=== PATIENT | male | born 1980 | race Caucasian/White ===

== ENCOUNTER 2020-03-21 04:34 | Emergency (ER) | payer OTHER ==
[~2020-03-21] VITALS: Ht 170 cm; Wt 86.1 kg
--- NOTE | 2020-03-21 05:20 | ED Respiratory ---
General Chief Complaint: Cough/Cold/Flu Symptoms Stated Complaint: COUGH,CONGESTION Source: patient (SOMEWHAT VAGUE HISTORIAN) History of Present Illness Date Seen by Provider: Mar 21, 2020 Time Seen by Provider: 04:51 Initial Comments PT ARRIVES VIA POV PT C/O PRODUCTIVE COUGH WITH GREEN SPUTUM, AND CHEST CONGESTION FOR AT LEAST A WEEK--PT IS UNABLE TO STATE WHEN HE BEGAN TO HAVE SYMPTOMS NO FEVER NO SHORTNESS OF BREATH NO LOSS OF TASTE OR SMELL C/O FATIGUE C/O BODY ACHES NO HEADACHE NO GI SYMPTOMS PT IS FROM [facility], AND TRAVELS AROUND FOR WORK--CURRENTLY HE IS LIVING HERE IN [place], AND [facility]ING [facility]. STATES HE WAS POTENTIALLY EXPOSED TO COVID-19 LAST WEEK, WHEN HE HAD TO TAKE A WORK TRUCK TO A TIRE SHOP IN [place], [place] AND THE SON OF THE PERSON WHO WORKED ON THE TRUCK HAD COVID. PT STATES HE WAS TESTED LAST WEEK AT [facility], AND WAS NEGATIVE. PT STATES HIS SYMPTOMS ARE GETTING WORSE HAS NOT TAKEN ANYTHING FOR SYMPTOMS HAS MILD ALLERGIES, BUT NO RESPIRATORY PROBLEMS OR ANY CHRONIC ILLNESSES PT HAS HISTORY OF SMOKING MARIJUANA, BUT NOT REGULAR CIGARETTES PT HAS HISTORY OF HEAVY ETOH USE, BUT NONE SINCE DECEMBER. PCP: [facility] Allergies and Home Medications Allergies Coded Allergies: No Known Drug Allergies (Unverified , 03/21/20) Patient Home Medication List Home Medication List Reviewed: Yes Review of Systems Review of Systems Constitutional: see HPI; No chills, No diaphoresis, No dizziness, No fever; malaise EENTM: no symptoms reported; No nose congestion, No throat pain Respiratory: see HPI, cough; No short of breath Cardiovascular: no symptoms reported; No chest pain Gastrointestinal: no symptoms reported; No abdominal pain, No diarrhea, No loss of appetite, No nausea, No vomiting Genitourinary: no symptoms reported Musculoskeletal: see HPI (BODY ACHES) Skin: no symptoms reported Psychiatric/Neurological: No Symptoms Reported; Denies Headache Hematologic/Lymphatic: No Symptoms Reported Immunological/Allergic: see HPI Past Rjebsfc-Rkahpu-Jtxdlf Hx Past Med/Social Hx: Reviewed and Corrections made Patient Social History Alcohol Use: Regular Use (HISTORY OF DAILY HEAVY USE-12 PACK/DAY. DENIES USE SINCE 12/2019) Recreational Drug Use: Yes (THC IN PAST) Drug of Choice: THC IN PAST Smoking Status: Never a Smoker Recent Foreign Travel: No Contact w/Someone Who Travel: No Seasonal Allergies Seasonal Allergies: Yes Past Medical History Surgeries: No Respiratory: No Cardiac: No Neurological: No Genitourinary: No Gastrointestinal: No Musculoskeletal: No Endocrine: No HEENT: No Cancer: No Psychosocial: No Integumentary: No Blood Disorders: No Physical Exam Vital Signs - First Documented 03/21/20 04:50 Temp 36.4 Pulse 62 Resp 18 B/P (MAP) 119/73 (88) Pulse Ox 95 O2 Delivery Room Air Capillary Refill : Height: '" Weight: lbs. oz. kg; BMI Method: General Appearance: WD/WN, no apparent distress, other (DOES NOT APPEAR ILL, OR TO BE IN ANY DISCOMFORT OR DISTRESS. NO COUGH NOTED AT ANY TIME) HEENT: PERRL/EOMI, normal ENT inspection, TMs normal, pharynx normal Neck: non-tender, full range of motion, supple, normal inspection Respiratory: no respiratory distress, no accessory muscle use, rhonchi (DIFFUSE RHONCHI IN BILATERAL MID AND LOWER LUNGS); No wheezing Cardiovascular: regular rate, rhythm, no murmur Gastrointestinal: non tender, soft Extremities: normal inspection, normal capillary refill Neurologic/Psychiatric: equipment monitor phototypesetting II-XII nml as tested, no motor/sensory deficits, alert, normal mood/affect, oriented x 3 Skin: normal color, warm/dry Progress/Results/Core Measures Suspected Sepsis SIRS Temperature: Pulse: Respiratory Rate: Blood Pressure / Mean: Results/Orders Lab Results Laboratory Tests Test 03/21/20 04:55 Range/Units Coronavirus 2018 (LIZ) Negative Negative Micro Results Microbiology 03/21/20 Influenza Types A,B Antigen (MIKE) - Final, Complete My Orders Orders - SIOBHAN FELIZ DO Influenza A And B Antigens (03/21/20 04:49) Covid 19 Inhouse Test (03/21/20 04:49) Chest 1 View, Ap/Pa Only (03/21/20 05:11) Coronavirus Sars-Cov-2 So 2018 (03/21/20 06:14) Vital Signs/I&O 03/21/20 03/21/20 04:50 05:10 Temp 36.4 Pulse 62 Resp 18 B/P (MAP) 119/73 (88) Pulse Ox 95 O2 Delivery Room Air Room Air Capillary Refill : Progress Note : Progress Note PT PLACED IN ISOLATION ROOM PPE WORN AT ALL TIMES COVID-19 TESTING PERFORMED PT ADVISED OF NEED FOR QUARANTINE NO COUGH, NO DYSPNEA OR HYPOXIA AT ANY TIME VITALS NORMAL Diagnostic Imaging Comments CXR--?LLL INFILTRATE ? --PENDING RADIOLOGIST REVIEW Reviewed: Reviewed by Me Departure Impression Primary Impression: Person under investigation for COVID-19 Additional Impression: Bronchitis Disposition: 01 HOME, SELF-CARE Condition: Stable Departure-Patient Inst. Referrals: [facility] (PCP/Family) Primary Care Physician Patient Instructions: Coronavirus Disease 2019 (COVID-19) Overview, Acute Bronchitis, Adult (DC) Add. Discharge Instructions: LOTS OF CLEAR LIQUIDS TYLENOL AND MOTRIN NEEDED FOR PAIN OR FEVER QUARANTINE YOURSELF AND ALL HOUSEHOLD MEMBERS AND CLOSE CONTACTS FOR 2 WEEKS OR UNTIL CLEARED BY OR HEALTH DEPARTMENT RETURN TO ER IF SYMPTOMS WORSEN All discharge instructions reviewed with patient and/or family. Voiced understanding. Scripts Guaifenesin/Dextromethorphan (Mucinex Dm ER 1,200-60 mg Tab) 1 Each Tbmp.12hr 1 EACH PO BID, #20 EA Prov: SIOBHAN FELIZ DO 03/21/20 Dexamethasone (Decadron) 6 Mg Tablet 6 MG PO DAILY, #10 TAB Prov: SIOBHAN FELIZ DO 03/21/20 Azithromycin (Zithromax) 500 Mg Tablet 500 MG PO DAILY for 5 Days, #5 TAB Prov: SIOBHAN FELIZ DO 03/21/20 Cefdinir (Cefdinir) 300 Mg Capsule 300 MG PO BID, #20 CAP Prov: SIOBHAN EFLIZ DO 03/21/20 Work/School Note: Work Release Form Date Seen in the Emergency Department: Mar 21, 2020 Return to Work: Apr 04, 2020 SIOBHAN FELIZ DO Mar 21, 2020 05:20
[2020-03-21] MEDS ORDERED: CEFD300C3 PO (06:20)
[2020-03-21] MEDS ORDERED: DEXA6TAB6 PO (06:20)
[2020-03-21] MEDS ORDERED: GUAI1TBM19 PO (06:20)
[2020-03-21] MEDS ORDERED: AZIT500T PO (06:20)
[2020-03-21 06:25] VITALS: BP 111/80
--- NOTE | 2020-03-21 07:13 | Diagnostic Imaging Report ---
Indication: Dyspnea and cough Single AP view of the chest is obtained. FINDINGS: Heart size and pulmonary vascularity are within normal limits, and the lungs are clear, bilaterally. IMPRESSION: Unremarkable chest. Dictated by: Dictated on workstation # [id number]
== END 2020-03-21 06:25 | disposition home or self-care (01) ==
LOC: ER 04:42
DX: J40 Bronchitis, not specified as acute or chronic (principal); Z20.828 Contact with and (suspected) exposure to other viral communicable diseases; Z87.891 Personal history of nicotine dependence
CPT/HCPCS: 71045; 87804; 99283; U0002; 87635

== ENCOUNTER → 2020-10-18 | Outpatient (CLI) | payer OTHER ==
[~2020-10-18] MED LIST: AZIT500T PO; CEFD300C3 PO; DEXA6TAB6 PO; GUAI1TBM19 PO
== END ==
LOC: LAB 06:35
PROVIDERS: ATTEND Urology
DX: Z31.41 Encounter for fertility testing (principal)
CPT/HCPCS: 89321